=== PATIENT | female | born 1935 ===

== ENCOUNTER 2020-12-02 09:53 | Emergency (ER) | payer OTHER, MEDICARE ==
[~2020-12-02] VITALS: Ht 165.1 cm; Wt 79.0 kg
--- NOTE | 2020-12-02 10:05 | NUR ---
BIB [facility] FROM HOME FOR "FAILURE TO THRIVE". PER EMS, PT LIVES ALONE, HASN'T BEEN EATING WELL, FAMILY WANTS HOSPICE EVAL. PT ARRIVES TO ED A&OX4, C/O FEELING "TIRED". REPORTS SHE HAD SURGERY TO PITUITARY GLAND EARLIER THIS YEAR, THEN WAS HOSPITALIZED WITH UTI, AND THEN HAD COVID IN SEPTEMBER.
--- NOTE | 2020-12-02 10:30 | NUR ---
DAUGHTER PAU ARRIVED. STATES PT HAD A SURGERY ON HER PITUITARY GLAND IN JUNE, THEN GOT A UTI AND HAD TO BE HOSPITALIZED FOR 3 DAYS. THEN PT GOT COVID IN SEPTEMBER, AND SHE HASN'T BEEN EATING WELL/DOING WELL SINCE THEN. REPORTS PT VOMITS IF SHE EATS MORE THAN 4-5 BITES.
--- NOTE | 2020-12-02 10:45 | NUR ---
ERP WAS IN TO SPEAK WITH PT AND DAUGHTER.
[2020-12-02 11:24] LABS: BASOPHILS % (AUTO) 0 % (0-1); EOSINOPHILS % (AUTO) 0 % (1-7); LYMPHOCYTES % (AUTO) 18 % (22-44); MEAN CORPUSCULAR HEMOGLOBIN 29.9 pg (27.0-34.8); MEAN CORPUSCULAR HGB CONC 33.4 g/dL (32.4-35.8); MEAN PLATELET VOLUME 8.3 fL (7.4-10.4); MONOCYTES % (AUTO) 9 % (2-9); NEUTROPHILS % (AUTO) 72 % (42-75); PLATELET COUNT 226 x10^3/uL (130-400); RED BLOOD COUNT 4.62 x10^6/uL (3.82-5.3); RED CELL DISTRIBUTION WIDTH 16.1 % (9.6-15.2)
[2020-12-02] MEDS ORDERED: SODIUM CHLORIDE 0.9%, 500ML IVBOLUS ONE (11:30)
[2020-12-02 11:31] LABS: ALANINE AMINOTRANSFERASE 19 U/L (12-78); ALBUMIN 3.1 g/dL (3.4-5.0); ANION GAP 11 mmol/L (5-15); CALCIUM 11.9 mg/dL (8.5-10.1); CHLORIDE 100 mmol/L (98-107); CREATININE 1.32 mg/dL (0.55-1.02)
[2020-12-02 11:33] LABS: ALKALINE PHOSPHATASE 86 U/L (45-117); BILIRUBIN,TOTAL 0.8 mg/dL (0.2-1.0); TOTAL PROTEIN 7.1 g/dL (6.4-8.2)
--- NOTE | 2020-12-02 13:02 | NUR ---
WATER PROVIDED TO PT SINCE COMING IN TO ER. ASSISTED PT UP TO BSC WITH DAUGHTER. PT COULD NOT VOID. DAUGHTER ASSISTED PT BACK TO BED. ERP NOTIFIED. NO ORDER FOR STRAIGHT CATH YET.
[2020-12-02 13:18] VITALS: BP 135/62
--- NOTE | 2020-12-02 13:30 | NUR ---
ERP WAS IN FOR RECHECK AND RV'WD PLAN WITH PT AND DAUGHTER.
--- NOTE | 2020-12-02 14:06 | NUR ---
D/C INSTRUCTIONS, MEDS & F/U APPT RV'WD WITH PT AND DAUGHTER. RX GIVEN X1. ASSISTED PT OUT OF ED VIA WC WITH DAUGHTER.
== END 2020-12-02 14:06 | disposition home or self-care (01) ==
LOC: ED 14:00
DX: R62.7 Adult failure to thrive (principal); I10 Essential (primary) hypertension; M19.90 Unspecified osteoarthritis, unspecified site
CPT/HCPCS: 36415; 71045; 80053; 85025; 96360; 99284; J7040